=== PATIENT | female | born 1960 | race Caucasian/White ===

== ENCOUNTER 2021-07-13 13:25 | Outpatient (REF) | payer MEDICARE, MEDICAID, SELFPAY ==
--- NOTE | ~2021-07-13 | MM_ITS ---
EXAMINATION: MM SCREENING DIGITAL BREAST TOMOSYNTHESIS, BILATERAL CLINICAL INFORMATION: Screening. Asymptomatic. The lifetime risk of breast cancer based on the Tyrer-Cuzick Model is 9%. COMPARISON: Mammography: 07/08/2020, 07/03/2019, 11/21/2018, 07/23/2018, 06/13/2018, 08/23/2016 TECHNIQUE: Digital breast tomosynthesis is performed in both the craniocaudal and mediolateral oblique views along with computer-aided detection (CAD). Synthesized 2D images are generated from the tomosynthesis. FINDINGS: The breasts are heterogeneously dense, which may obscure small masses (ACR BI-RADS breast composition Category c). There is a fibronodular parenchymal pattern with scattered bilateral stable asymmetries similar to prior studies. There is no significant mass or interval developing density or architectural abnormality. The left breast has a biopsy clip marker retroareolar region. There are no abnormal calcifications. The axilla and skin contours are unremarkable. No significant changes. MM/MM tomosynthesis screening BI IMPRESSION: No significant changes from prior studies. ASSESSMENT: BI-RADS 2: Benign RECOMMENDATION: Routine annual mammography screening. This patient's information was entered into a reminder system with a target due date for their next mammogram.
== END 2021-07-13 13:26 | disposition home or self-care (01) ==
LOC: HO.MAMMO 13:25
PROVIDERS: PCP Student in an Organized Health Care Education/Training Program; Visit Provider Student in an Organized Health Care Education/Training Program
DX: Z12.31 Encounter for screening mammogram for malignant neoplasm of breast (principal)
CPT/HCPCS: 77063; 77067

== ENCOUNTER 2022-07-17 11:38 | Outpatient (REF) | payer MEDICARE, MEDICAID, SELFPAY ==
--- NOTE | ~2022-07-17 | MM_ITS ---
EXAMINATION: MM SCREENING DIGITAL BREAST TOMOSYNTHESIS, BILATERAL CLINICAL INFORMATION: Screening. Asymptomatic. The lifetime risk of breast cancer based on the Tyrer-Cuzick Model is 16%. COMPARISON: Mammography: 07/14/2021, 07/08/2020, 07/03/2019, 11/21/2018, 07/23/2018, 06/20/2018, 06/13/2018. TECHNIQUE: Digital breast tomosynthesis is performed in both the craniocaudal and mediolateral oblique views along with computer-aided detection (CAD). Synthesized 2D images are generated from the tomosynthesis. FINDINGS: The breasts are heterogeneously dense, which may obscure small masses (ACR BI-RADS breast composition Category c). Breast tissue composition borders on average fibroglandular. Parenchymal pattern is similar to prior exams. There is no developing density or interval architectural abnormality. Parenchymal asymmetry central anterior left breast on CC view is stable. There is biopsy clip marker again noted anterior left breast. Residual calcifications anterior lower inner left breast are similar to prior diagnostic study 2018. The axilla and skin contours are unremarkable. MM/MM tomosynthesis screening BI IMPRESSION: No significant changes from prior studies. ASSESSMENT: BI-RADS 2: Benign RECOMMENDATION: Routine annual mammography screening. This patient's information was entered into a reminder system with a target due date for their next mammogram.
== END 2022-07-17 11:39 | disposition home or self-care (01) ==
LOC: HO.MAMMO 11:38
PROVIDERS: PCP Student in an Organized Health Care Education/Training Program; Visit Provider Student in an Organized Health Care Education/Training Program
DX: Z12.31 Encounter for screening mammogram for malignant neoplasm of breast (principal)
CPT/HCPCS: 77063; 77067

== ENCOUNTER → 2023-08-21 11:30 | Outpatient (BNV) | payer MEDICARE, MEDICAID, SELFPAY | PROVIDERS: Visit Provider Radiology Diagnostic Radiology | DX: Z12.31 Encounter for screening mammogram for malignant neoplasm of breast (principal) | CPT/HCPCS: 77063; 77067 ==

== ENCOUNTER 2023-08-21 11:45 | Outpatient (REF) | payer MEDICARE, MEDICAID, SELFPAY ==
--- NOTE | ~2023-08-21 | MM_ITS ---
EXAMINATION: MM SCREENING DIGITAL BREAST TOMOSYNTHESIS, BILATERAL CLINICAL INFORMATION: Screening. Asymptomatic. COMPARISON: Mammography: This study is compared with prior exams dating back to 2019. TECHNIQUE: Digital breast tomosynthesis is performed in both the craniocaudal and mediolateral oblique views along with computer-aided detection (CAD). Synthesized 2D images are generated from the tomosynthesis. FINDINGS: The breasts are heterogeneously dense, which may obscure small masses (ACR BI-RADS breast composition Category c). There are grouped calcifications at the lower inner quadrant of the left breast at a middle depth. Further mammographic evaluation of these calcifications with magnification is advised. There is tissue marker in the lower outer quadrant of the left breast from prior benign percutaneous biopsy. In the right breast, there are no significant masses, abnormal calcifications, or other abnormalities. MM/MM tomosynthesis screening BI IMPRESSION: Left breast calcifications warrant additional mammographic imaging with magnification. No mammographic signs of malignancy right breast. ASSESSMENT: BI-RADS BI-RADS 0 - Incomplete: Needs additional Imaging. RECOMMENDATION: Additional views of the left breast Radiology department staff will contact the patient for additional imaging. Additional Imaging required This examination should not preclude the clinical evaluation of a suspicious palpable abnormality. This patient's information was entered into a reminder system with a target due date for their next mammogram.
== END 2023-08-21 11:46 | disposition home or self-care (01) ==
LOC: HO.MAMMO 11:45
PROVIDERS: Visit Provider Student in an Organized Health Care Education/Training Program
DX: Z12.31 Encounter for screening mammogram for malignant neoplasm of breast (principal)
CPT/HCPCS: 77063; 77067

== ENCOUNTER → 2023-11-13 11:30 | Outpatient (BNV) | payer MEDICARE, MEDICAID, SELFPAY | PROVIDERS: PCP Student in an Organized Health Care Education/Training Program; Visit Provider Radiology Diagnostic Radiology | DX: R92.1 Mammographic calcification found on diagnostic imaging of breast (principal) | CPT/HCPCS: 77065 ==

== ENCOUNTER 2023-11-13 11:57 | Outpatient (REF) | payer MEDICARE, MEDICAID, SELFPAY ==
--- NOTE | ~2023-11-13 | MM_ITS ---
EXAMINATION: MM DIAGNOSTIC DIGITAL MAMMOGRAPHY, LEFT CLINICAL INFORMATION: Evaluate grouped calcifications in the lower inner quadrant of the breast is middle depth seen on screening exam. Patient has history of benign stereotactic biopsy on the left 07/23/2018. COMPARISON: Mammography: 08/21/2023, 07/17/2022, 07/13/2021, 07/08/2020, and dating back to 08/23/2016. TECHNIQUE: Digital mammography is performed in the following views: 2-D spot magnification left CC and lateral medial views x2, as well as a 3-D full-field left mediolateral view. FINDINGS: There are scattered areas of fibroglandular density (ACR BI-RADS breast composition Category b). There is a post benign biopsy clip marker in the anterior left breast. In the lower inner quadrant of the left breast, there are loosely grouped albeit pleomorphic calcifications in a suspicious distribution (ductal distribution) with both linear, rounded, and branching forms, suspicious and indeterminate. Given the overall appearance on the magnification views and distribution, stereotactic biopsy is warranted. An asymmetric tissue density in the upper mid left breast on the MLO projection is unchanged from numerous prior exams and benign. No skin or axillary abnormalities noted. MM/MM tomosynthesis added views L IMPRESSION: -Suspicious calcifications in a ductal distribution with both branching, linear, and rounded forms, for which stereotactic biopsy is recommended. -The patient was 45 minutes late to her appointment, and declined to stay for the final impression of the interpretation. She will be called with the results and recommendations. ASSESSMENT: BI-RADS BI-RADS 4 - Suspicious finding RECOMMENDATION: Biopsy recommended
== END 2023-11-13 11:58 | disposition home or self-care (01) ==
LOC: HO.MAMMO 11:57
PROVIDERS: PCP Student in an Organized Health Care Education/Training Program; Visit Provider Student in an Organized Health Care Education/Training Program
DX: R92.1 Mammographic calcification found on diagnostic imaging of breast (principal)
CPT/HCPCS: 77061; 77065

== ENCOUNTER 2023-11-21 08:34 | Outpatient (AMB) | payer MEDICARE, MEDICAID, SELFPAY ==
--- NOTE | 2023-11-21 08:35 | MHC.OFFVIS ---
Intake Vital Signs 11/21/23 08:41 Height 5 ft 3 in Weight 181 lb BMI 32.1 BP 129/60 Blood Pressure Location Lt brachial Position Sitting Pulse 83 Intake Visit Reasons: LT ST BX - calcs Intake Note: This patient presents for a Stereotactic biopsy consultation for left breast calcifications. Patient c/o; reports occasional left breast pain. 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 Accompanied by: Sister Allergies mckenzie flavor [MCKENZIE FLAVOR] Allergy (Unknown, Unverified 11/21/23 08:47) HIVES anything mckenzie Allergy (Unknown, Uncoded 11/21/23 08:47) Unknown Medication List - Last Reconciled 11/21/23 by Jonathan Sesay MD acetaminophen mg PO albuterol sulfate 90 mcg/actuation (Ventolin HFA) 2 puffs inhalation QID PRN amitriptyline 100 mg PO BID celecoxib 50 mg PO BID esomeprazole magnesium 40 mg PO DAILY hydrochlorothiazide 25 mg PO DAILY hydroxyzine HCl 25 mg PO TID PRN lisinopril 10 mg PO DAILY loratadine 10 mg PO DAILY meclizine 25 mg PO DAILY PRN HPI LT ST BX - calcs HPI Details 63 year female here for left breast calcifications. She had undergone screening mammogram and was brought back in last week for genetic mammogram in view of calcifications seen on the left side. Was noted to have suspicious calcifications in a ductal distribution with branching, linear and rounded forms. A stereotactic biopsy had been recommended by the radiologist She otherwise denies any palpable breast masses or any nipple or skin changes Her menarche was at the age of 15 . She was never . She had menopause in her late 50s. She did have a biopsy on left breast in 2019 which was benign Her sister had metastatic breast cancer at age of 60. [facility] Medical History (Updated 11/21/23 @ 09:07 by Jonathan Sesay MD) Hypertension COPD (chronic obstructive pulmonary disease) Family history of breast cancer Breast calcification, left Female Reproductive History Menstrual Age of Menarche: 15 Total pregnancies: 0 Review of Systems Const Denies chills and Denies fever(s) Card Denies chest pain, Denies dyspnea and Denies dyspnea on exertion Resp Denies cough, Denies dyspnea and Denies dyspnea on exertion GI Denies hematochezia and Denies change in bowel habits Denies hematuria Musc Denies back pain and Denies limited range of motion Neuro Denies focal weakness and Denies convulsions Psych Denies depression and Denies mood swings Physical Exam Const General: comfortable and no acute distress Orientation/consciousness: patient oriented x3 Neck Neck: Yes no lymphadenopathy Chest Other: No palpable breast masses, no nipple or skin changes, no axillary lymphadenopathy Resp Auscultation: clear to auscultation bilaterally Cardio Rhythm: regular rhythm GI Palpation (GI): Soft to palpation, nontender and no guarding Neuro General: patient oriented x3 Assessment & Plan Assessment & Plan (1) Breast calcification, left: Code(s): R92.1 - Mammographic calcification found on diagnostic imaging of breast Plan: She had calcifications on the left breast as described above. A stereotactic biopsy had been recommended by the radiologist. I explained to her the technique of this procedure. I will see her again in the office to discuss the path report next week. (2) Family history of breast cancer: Code(s): Z80.3 - Family history of malignant neoplasm of breast Plan: Her sister was diagnosed to have metastatic breast cancer at age of 60. Her maternal grandmother was diagnosed to have breast cancer and a maternal uncle had colon cancer. She will qualify most likely for genetic testing. I explained to her the implications of this test. She is interested so I will schedule her for genetic counseling and genetic testing on her follow-up. Orders: Orders MM stereotactic biopsy LT 11/20/23 R92.1 - Mammographic calcification found on diagnostic imaging of breast Coding Level of Care Code New Pt Level 3 (70616) Diagnoses Breast calcification, left R92.1 Family history of breast cancer Z80.3
[2023-11-21 08:41] VITALS: BP 129/60; PULSE 83; BMI 32.1
== END 2023-11-21 09:09 | disposition home or self-care (01) ==
PROVIDERS: PCP Student in an Organized Health Care Education/Training Program; Visit Provider Surgery
DX: R92.1 Mammographic calcification found on diagnostic imaging of breast (principal); Z80.3 Family history of malignant neoplasm of breast
CPT/HCPCS: 99203

== ENCOUNTER 2023-11-21 09:18 | Outpatient (REF) | payer MEDICARE, MEDICAID, SELFPAY ==
--- NOTE | ~2023-11-21 | MM_ITS ---
EXAMINATION: STEREOTACTIC TOMOSYNTHESIS-GUIDED VACUUM-ASSISTED BREAST BIOPSY, LEFT SPECIMEN RADIOGRAPH, LEFT POST PROCEDURE DIGITAL MAMMOGRAM, LEFT CLINICAL INFORMATION: Pleomorphic calcifications in a ductal/segmental distribution, left breast inferior medial quadrant, suspicious and recommended for stereotactic biopsy. Branching and linear forms are present. COMPARISON: 11/13/2023, 08/21/2023, and numerous priors. Patient has prior benign stereotactic biopsy in the anterior left breast just inferior and just lateral to the nipple line. TECHNIQUE/PROCEDURE: Informed consent was obtained from the patient after discussion of the benefits, risks, and alternatives to biopsy today. Patient appeared to understand. Gave opportunity for questions. Patient signed consent form. BIOPSY TABLE: [employer]Quilibrium Affirm Prone Biopsy System. LESION: Pleomorphic calcifications lower inner left breast. LOCAL ANESTHESIA: 5 mL 1% lidocaine; 8 mL 1% lidocaine with epinephrine. DERMATOTOMY: Single skin preethi dermatotomy performed. NEEDLE: [employer] Eviva 9-gauge vacuum assisted core biopsy device. APPROACH: caudal cranial. TARGETING: Combination of digital breast tomosynthesis and stereotactic digital mammography used for targeting. CORES: 8. CLIP: [employer] Buckle-shaped marker. SPECIMEN RADIOGRAPH: Specimen radiograph is taken in separate room using digital mammography. Several of the index calcifications are in the excised cores, including a linear form. POST PROCEDURE UNILATERAL DIGITAL MAMMOGRAM: The post biopsy mammogram is performed in separate room using separate digital mammography equipment from the biopsy procedure. CC and mediolateral views are obtained. There are scattered areas of fibroglandular density (breast composition category: b). The clip marker is in accurate and good position. The calcifications are markedly decreased at the biopsy site. No significant hematoma. The patient tolerated the procedure well. No immediate complications. Home instructions reviewed with the patient. Final pathology results are pending. MM/MM stereotactic biopsy LT IMPRESSION: 1. Digital tomosynthesis-guided core biopsy left breast pleomorphic calcifications in a ductal distribution lower inner quadrant, with subsequent clip placement. 2. Specimen radiograph taken and post procedure mammogram. There are several calcifications within the specimen radiograph. There is accurate and satisfactory positioning of the biopsy clip. 3. Final pathology results pending. An addendum report will be issued.
== END 2023-11-21 09:19 | disposition home or self-care (01) ==
LOC: HO.MAMMO 09:18
PROVIDERS: PCP Student in an Organized Health Care Education/Training Program; Visit Provider Surgery
DX: R92.1 Mammographic calcification found on diagnostic imaging of breast (principal)
CPT/HCPCS: 19081; 88305; 88341; 88342; 99202; A4648

== ENCOUNTER → 2023-11-21 10:00 | Outpatient (BNV) | payer MEDICARE, MEDICAID, SELFPAY | PROVIDERS: PCP Student in an Organized Health Care Education/Training Program; Visit Provider Radiology Diagnostic Radiology | DX: R92.1 Mammographic calcification found on diagnostic imaging of breast (principal) | CPT/HCPCS: 19081 ==

== ENCOUNTER 2023-11-28 14:07 | Outpatient (AMB) | payer MEDICARE, MEDICAID, SELFPAY ==
--- NOTE | 2023-11-28 14:12 | MHC.OFFVIS ---
Intake Vital Signs 11/28/23 14:22 Height 5 ft 3 in Weight 180 lb 15.992 oz BMI 32.1 BP 134/75 Blood Pressure Location Lt brachial Position Sitting Pulse 79 Intake Visit Reasons: LT breast calcifications, biopsy results Intake Note: This patient presents for a follow-up assessment for breast biopsy results. Patient c/o; reports no changes or complaints at this time. Comedian Required: No Accompanied by: Other Relationship Allergies mckenzie flavor [MCKENZIE FLAVOR] Allergy (Unknown, Unverified 11/28/23 14:22) HIVES anything mckenzie Allergy (Unknown, Uncoded 11/28/23 14:22) Unknown Medication List - Last Reconciled 11/28/23 by Jonathan Sesay MD acetaminophen mg PO albuterol sulfate 90 mcg/actuation (Ventolin HFA) 2 puffs inhalation QID PRN amitriptyline 100 mg PO BID celecoxib 50 mg PO BID esomeprazole magnesium 40 mg PO DAILY hydrochlorothiazide 25 mg PO DAILY hydroxyzine HCl 25 mg PO TID PRN lisinopril 10 mg PO DAILY loratadine 10 mg PO DAILY meclizine 25 mg PO DAILY PRN HPI LT breast calcifications, biopsy results HPI Details She had undergone stereotactic biopsy for left breast calcifications last hemorrhoid 2022. She tolerated procedure well although she admits some bruising in the area. She otherwise denies significant complaints. [facility] Medical History (Updated 11/28/23 @ 14:39 by Jonathan Sesay MD) Atypical ductal hyperplasia of breast Hypertension COPD (chronic obstructive pulmonary disease) Family history of breast cancer Breast calcification, left Female Reproductive History Menstrual Age of Menarche: 15 Review of Systems Const Denies chills and Denies fever(s) Card Denies chest pain, Denies dyspnea and Denies dyspnea on exertion Resp Denies cough, Denies dyspnea and Denies dyspnea on exertion GI Denies hematochezia and Denies change in bowel habits Denies hematuria Musc Denies back pain and Denies limited range of motion Neuro Denies focal weakness and Denies convulsions Psych Denies depression and Denies mood swings Physical Exam Vital Signs: Last Vital Signs Pulse 79 11/28/23 14:22 BP 134/75 11/28/23 14:22 BMI result Body Mass Index 32.1 Const General: comfortable and no acute distress Chest Other: Left breast biopsy site on the inferior breast with some ecchymosis, no hematoma Resp Effort & Inspection: normal respiratory effort Cardio Rate: regular rate Assessment & Plan Assessment & Plan (1) Atypical ductal hyperplasia of breast: Code(s): N60.99 - Unspecified benign mammary dysplasia of unspecified breast Plan: Status post stereotactic biopsy. Her path report shows an atypical ductal hyperplasia. However, the radiologist had recommended proceeding with an MRI in view of the segmental distribution of the calcifications. There may be associated DCIS in the surrounding areas so we will schedule her for breast MRI. I will see her in the office after the MRI and we can decide on the next step in her workup including lumpectomy. Orders: Orders MR breast LT wo con Today R92.1 - Mammographic calcification found on diagnostic imaging of breast Coding Level of Care Code Est Pt Level 3 (09338) Diagnoses Atypical ductal hyperplasia of breast N60.99
[2023-11-28 14:22] VITALS: BP 134/75; PULSE 79; BMI 32.1
== END 2023-11-28 14:41 | disposition home or self-care (01) ==
PROVIDERS: PCP Student in an Organized Health Care Education/Training Program; Visit Provider Surgery
DX: N60.99 Unspecified benign mammary dysplasia of unspecified breast (principal)
CPT/HCPCS: 99213

== ENCOUNTER → 2023-11-28 14:07 | Outpatient (BNVA) | payer MEDICARE, MEDICAID, SELFPAY | PROVIDERS: PCP Student in an Organized Health Care Education/Training Program; Visit Provider Surgery | DX: N60.99 Unspecified benign mammary dysplasia of unspecified breast (principal) | CPT/HCPCS: 99212 ==

== ENCOUNTER 2024-01-04 13:44 | Outpatient (REF) | payer MEDICARE, MEDICAID, SELFPAY | END 2024-01-04 13:45 | disposition home or self-care (01) | LOC: HO.MRI 13:44 | PROVIDERS: PCP Student in an Organized Health Care Education/Training Program; Visit Provider Surgery | DX: Z13.89 Encounter for screening for other disorder (principal) ==

== ENCOUNTER 2024-02-14 11:51 | Outpatient (AMB) | payer MEDICARE, MEDICAID, SELFPAY ==
--- NOTE | 2024-02-14 11:56 | MHC.OFFVIS ---
Intake Visit Reasons: MRI results *[facility] Intake Note: MRI results *[facility]. Patient c/o; reports no complaints. 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: Details: [age] year female here for follow-up for atypical ductal hyperplasia. She had undergone stereotactic biopsy for left breast calcifications last November 21, 2022. She tolerated the procedure well. Her path report showed atypical ductal hyperplasia. However, since there was segmental distribution of the calcifications, an MRI of the breast was also recommended by the radiologist. She is here to discuss this MRI. This was done in [facility]. She otherwise denies any significant new complaints. [facility] Medical History Atypical ductal hyperplasia of breast Hypertension COPD (chronic obstructive pulmonary disease) Family history of breast cancer Breast calcification, left Female Reproductive History Menstrual Age of Menarche: 15 Review of Systems Const Denies chills and Denies fever(s) Card Denies chest pain, Denies dyspnea and Denies dyspnea on exertion Resp Denies cough, Denies dyspnea and Denies dyspnea on exertion GI Denies hematochezia and Denies change in bowel habits Denies hematuria Musc Denies back pain and Denies limited range of motion Neuro Denies focal weakness and Denies convulsions Psych Denies depression and Denies mood swings Physical Exam Const General: comfortable and no acute distress Orientation/consciousness: patient oriented x3 Neck Neck: Yes no lymphadenopathy Chest Other: no palpable breast masses, no nipple or skin changes Resp Auscultation: clear to auscultation bilaterally Cardio Rhythm: regular rhythm GI Palpation (GI): Soft to palpation, nontender and no guarding Neuro General: patient oriented x3 Assessment & Plan Assessment & Plan (1) Atypical ductal hyperplasia of breast: Code(s): N60.99 - Unspecified benign mammary dysplasia of unspecified breast Category: Medical Plan: Her MRI done at [facility] actually does not reveal any suspicious mass. There are post surigical changes around the biopsy marker seen on the left breast. However, in view of the atypical ductal hyperplasia seen on her biopsy of the left breast, she will undergo lumpectomy with Hologic localizer. I reviewed with her the technique of this procedure. I discussed the risks including but not limited to bleeding, infections, hematoma, as well as the benefits and alternatives. The case was discussed with the radiologist. Coding Level of Care Code Est Pt Level 3 (24067) Diagnoses Atypical ductal hyperplasia of breast N60.99
== END 2024-02-14 12:16 | disposition home or self-care (01) ==
PROVIDERS: PCP Student in an Organized Health Care Education/Training Program; Visit Provider Surgery
DX: N60.99 Unspecified benign mammary dysplasia of unspecified breast (principal)
CPT/HCPCS: 99213

== ENCOUNTER → 2024-02-14 11:51 | Outpatient (BNVA) | payer MEDICARE, MEDICAID, SELFPAY | PROVIDERS: PCP Student in an Organized Health Care Education/Training Program; Visit Provider Surgery | DX: N60.99 Unspecified benign mammary dysplasia of unspecified breast (principal) | CPT/HCPCS: 99212 ==

== ENCOUNTER 2024-03-10 09:49 | Outpatient (REF) | payer MEDICARE, MEDICAID, SELFPAY ==
--- NOTE | ~2024-03-10 | MM_ITS ---
EXAMINATION: MM MAMMOGRAM GUIDED RFID LOCALIZATION BREAST, LEFT CLINICAL INFORMATION: Stereotactic biopsy yielding ADH left breast posterior medial aspect, marked by a buckle clip.? 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 RFID localization of buckle-shaped biopsy clip. MRI performed at [facility] 01/30/2024 shows no additional suspicious enhancement, either mass or non mass-like enhancement above background. COMPARISON: Stereotactic biopsy left breast 11/21/2023. MRI breasts performed at [facility] 01/30/2024. Diagnostic mammography 11/13/2023. TECHNIQUE NEEDLE LOC: Proper informed consent is obtained from the patient after discussion of the procedure, potential risks and complications, and alternatives including declining the procedure today. Patient was given an opportunity for questions. The patient appeared to understand. The patient consented to the procedure and signed the consent form. GUIDANCE: Digital mammography. APPROACH: Medial Lateral. TARGET: Buckle-shaped biopsy clip. ANESTHESIA: carbonated lidocaine 1%: 2.0 mL. LOCALIZATION SYSTEM: [employer] LOCallizer Wire-Free Guidance System with 12g needle applicator. 7 cm length. RADIOFREQUENCY TAG: ID # [id number] DERMATOTOMY: 1 mm skin-preethi dermatotomy performed. RF Tag ID confirmed with LOCalizer Guidance System prior to placement. The skin is prepped and local anesthesia administered. The needle is positioned and RFID tag deployed. Final images demonstrate the LOCalizer RF tag to reside directly abutting and touching the buckle biopsy clip. The patient tolerated the procedure well and had no immediate complications. Dressing placed and home instructions reviewed. MM/MM RF Tag device LT IMPRESSION: -Status post left breast RFID localization, left breast inferomedial aspect. -Last 2 images show RFID placed in excellent location; images are marked and labeled for reference in the OR.
[2024-03-10] MEDS: Lidocaine HCl 1 % 20 ML VIAL SUBCUT (10:52)
[2024-03-10] MEDS: Sodium Bicarbonate 8.4% 50 MEQ/50 ML VIAL SUBCUT (10:53)
== END 2024-03-10 09:50 | disposition home or self-care (01) ==
LOC: HO.MAMMO 09:49
PROVIDERS: PCP Student in an Organized Health Care Education/Training Program; Visit Provider Surgery
DX: N60.92 Unspecified benign mammary dysplasia of left breast (principal)
CPT/HCPCS: 19281; C1819

== ENCOUNTER → 2024-03-10 10:00 | Outpatient (BNV) | payer MEDICARE, MEDICAID, SELFPAY | PROVIDERS: PCP Student in an Organized Health Care Education/Training Program; Visit Provider Radiology Diagnostic Radiology | DX: N60.92 Unspecified benign mammary dysplasia of left breast (principal) | CPT/HCPCS: 19281 ==

== ENCOUNTER 2024-03-18 09:34 | Day surgery (SDC) | payer MEDICARE, MEDICAID, SELFPAY ==
[2024-03-14 14:15] VITALS: BMI 32.1
--- NOTE | ~2024-03-18 | MM_ITS ---
EXAMINATION: MM SPECIMEN X-RAY BREAST, LEFT BREAST CLINICAL INDICATION: Status post excisional biopsy for calcifications representing atypical ductal hyperplasia bordering on low-grade DCIS, lower inner left breast. COMPARISON: Localization 03/10/2024. Stereotactic biopsy 11/21/2023. TECHNIQUE: Single radiograph of the excised breast tissue is performed using digital mammography. FINDINGS: Specimen radiograph demonstrates the presence of the buckle-shaped biopsy clip, RFID tag, and several calcifications contained within the central aspect of the specimen. Results were called to Dr. Jonathan Sesay in the operating room at the time of imaging.
--- NOTE | 2024-03-18 09:00 | P.HPSUR_ITS ---
Pre-Procedural Eval Section A - 24 Hr Update-Section A only Date of Service: 03/18/24 Section B - Complete if H&P > 30 days Chief Complaint: Unspecified benign mammary dysplasia of unspecifie Details of Present Illness: has atypical ductal hyperplasia in left breast calcification Relevant Family History (Specify if Yes): Yes Relevant Social History: None Present Medications: see Short Stay Collaborative assessment Medical History: Significant History (COPD) Allergies: Allergies Allergy/AdvReac Type Severity Reaction Status Date / Time mckenzie flavor [MCKENZIE FLAVOR] Allergy Unknown HIVES Unverified 02/14/24 12:00 Review of Systems Sugical H&P ROS: Negative: Constitution, Cardiovascular, Respiratory, Neurological, Psychiatric, Hem-Onc, Allergic/Immunologic, Gastrointestinal, Genitourinary, Musculoskeletal, Integumentary, Endocrine and Eyes/Ears/Nose/Th roat Exam Surgical H&P Exam: Normal: HEENT, Normal: Heart, Normal: Lungs, Normal: Extremities, Normal: Abdomen, Normal: Skin and Normal: Neurological Plan Diagnosis/Plan: Unchanged I have reviewed the history and physical and performed a pertinent physical examination on my patient. No changes have occurred unless specified. Time Spent With Patient Time: Total time managing care of this patient today ____ minutes.
[2024-03-18 10:04] VITALS: BMI 33.3
[2024-03-18 10:07] VITALS: BP 146/74; PULSE 82; RESP 17; TEMP 36.3; O2SAT 95
[2024-03-18] MEDS: Lactated Ringers 1,000 ML 100 ML IVCONT (10:08)
--- NOTE | 2024-03-18 10:10 | HO.ANESPROP2 ---
Documented by User: Funmi Cates NP 03/17/24 10:44 HPI - Anesthesia Eval Consult details Narrative: 63yo F for Left Breast Lumpectomy w/LOCalizer PMFSH Active Problems Active Problems: All Active Problems Atypical ductal hyperplasia of breast (Acute) Hypertension (Acute) COPD (chronic obstructive pulmonary disease) (Acute) Family history of breast cancer (Acute) Breast calcification, left (Acute) Past Medical History Medical History GERD (gastroesophageal reflux disease) Atypical ductal hyperplasia of breast Hypertension COPD (chronic obstructive pulmonary disease) Family history of breast cancer Breast calcification, left Surgical History Surgical History (Updated 03/18/24 @ 09:45 by Pia Marshall RN) Hx of elbow surgery Hx of hand surgery H/O colonoscopy Social History Social History Patient Tobacco Use Status: Former Tobacco user Quit Date: 2017 Tobacco use type: Cigarette Use of substances other than those prescribed or required for medical reasons: Yes Substance Use Frequency: Daily Are you DNR?: No Advance Directives: No Advance Directives Information Provided: Yes Meds Allergies Allergy/AdvReac Type Severity Reaction Status Date / Time santos flavor [SANTOS FLAVOR] Allergy Unknown HIVES Verified 03/18/24 09:45 Home Medications ?Medication ?Instructions ?Recorded ?Confirmed ?Last Taken ?Type acetaminophen 500 mg tablet 500 mg PO Q4H PRN Pain 11/21/23 03/14/24 Unknown History albuterol sulfate 90 mcg/actuation 2 puff inhalation QID PRN wheezing 11/21/23 03/14/24 03/18/24 07:45 History aerosol inhaler (Ventolin HFA) esomeprazole magnesium 40 mg 40 mg PO DAILY 11/21/23 03/14/24 Unknown History capsule,delayed release hydrochlorothiazide 25 mg tablet 25 mg PO DAILY 11/21/23 03/14/24 Unknown History hydroxyzine HCl 25 mg tablet 25 mg PO TID PRN itch 11/21/23 03/14/24 Unknown History lisinopril 10 mg tablet 10 mg PO DAILY 11/21/23 03/14/24 Unknown History loratadine 10 mg tablet 10 mg PO DAILY 11/21/23 03/14/24 Unknown History meclizine 25 mg tablet 25 mg PO DAILY PRN Dizziness Or 11/21/23 03/14/24 Unknown History Vertigo Exam Height,Weight and Vital Signs: Height 5 ft 3 in Weight 82.1 kg Assessment and Plan Assessment Anesthesia Assessment: Chart Reviewed Documented by User: Pia Allen DO 03/18/24 10:41 HPI - Anesthesia Eval Consult details Narrative: 63yo F for Left Breast Lumpectomy w/LOCalizer Marijuana and ETOH daily PMFSH Past Medical History Medical History GERD (gastroesophageal reflux disease) Atypical ductal hyperplasia of breast Hypertension COPD (chronic obstructive pulmonary disease) Family history of breast cancer Breast calcification, left Family History Family history of problems with anesthesia: No Surgical History Surgical History (Updated 03/18/24 @ 09:45 by Pia Marshall RN) Hx of elbow surgery Hx of hand surgery H/O colonoscopy History of Problems with Anesthesia: No Social History Social History Patient Tobacco Use Status: Former Tobacco user Quit Date: 2017 Tobacco use type: Cigarette Use of substances other than those prescribed or required for medical reasons: Yes Substance Use Frequency: Daily Are you DNR?: No Advance Directives: No Advance Directives Information Provided: Yes Meds Allergies Allergy/AdvReac Type Severity Reaction Status Date / Time santos flavor [SANTOS FLAVOR] Allergy Unknown HIVES Verified 03/18/24 09:45 Home Medications ?Medication ?Instructions ?Recorded ?Confirmed ?Last Taken ?Type acetaminophen 500 mg tablet 500 mg PO Q4H PRN Pain 11/21/23 03/14/24 Unknown History albuterol sulfate 90 mcg/actuation 2 puff inhalation QID PRN wheezing 11/21/23 03/14/24 03/18/24 07:45 History aerosol inhaler (Ventolin HFA) esomeprazole magnesium 40 mg 40 mg PO DAILY 11/21/23 03/14/24 Unknown History capsule,delayed release hydrochlorothiazide 25 mg tablet 25 mg PO DAILY 11/21/23 03/14/24 Unknown History hydroxyzine HCl 25 mg tablet 25 mg PO TID PRN itch 11/21/23 03/14/24 Unknown History lisinopril 10 mg tablet 10 mg PO DAILY 11/21/23 03/14/24 Unknown History loratadine 10 mg tablet 10 mg PO DAILY 11/21/23 03/14/24 Unknown History meclizine 25 mg tablet 25 mg PO DAILY PRN Dizziness Or 11/21/23 03/14/24 Unknown History Vertigo Exam Exam Date and Time: March 18, 2024 101 Height,Weight and Vital Signs: Height 5 ft 3 in Weight 82.1 kg Height 5 ft 3 in Weight 85.275 kg Vital Signs Temperature 97.3 F 03/18/24 10:07 Pulse Rate 82 03/18/24 10:07 Respiratory Rate 17 03/18/24 10:07 Blood Pressure 146/74 H 03/18/24 10:07 Pulse Oximetry 95 03/18/24 10:07 Oxygen Delivery Method Room Air 03/18/24 10:07 Temperature 97.3 F 03/18/24 10:07 Pulse Rate 82 03/18/24 10:07 Respiratory Rate 17 03/18/24 10:07 Blood Pressure 146/74 H 03/18/24 10:07 Pulse Oximetry 95 03/18/24 10:07 Oxygen Delivery Method Room Air 03/18/24 10:07 Airway Mallampati Class: II TM Dist: >3cm Neck ROM: Limited Denture: Upper Loose/Missing/Broken Teeth: Yes (poor dentition bottom jaw) Heart: S1S2 Lungs: CTAB Assessment and Plan Assessment Anesthesia Assessment: Anesthesia Plan Discussed and Chart Reviewed Final Anesthetic Review Family History of Problems with Anesthesia: No History of Problems with Anesthesia: No NPO: Yes ASA Class: III Final Preanesthetic Review: No Changes in Pt Med Stat, Meds/Allgs Chart Reviewed, Consent Obtained/Reviewed and Anes Risks/Benef Reviewed Patient Risk: Low Procedure Risk: Low Anesthetic Plan Anesthetic Plan: Agree w/ Assess. and Plan Disposition: Standard PACU
--- NOTE | 2024-03-18 10:49 | W.PM.OPN ---
Operative Note Operative Note Date of Service: 03/18/24 Narrative: Preop diagnosis: Atypical ductal hyperplasia, left breast Postop diagnosis: The same Procedure: Lumpectomy left breast with Hologic localizer Surgeon: Jonathan Sesay MD itinerant teacher assistant: PAWEL Chowdhury The patient is a 63 year old female with calcifications on the left breast. MRI biopsy of this showed atypical ductal hyperplasia. In view of the association of this pathology with high-grade lesions, I had recommended doing lumpectomy. I explained the technique of lumpectomy with Hologic localizer. I reviewed the risks, benefits, and alternatives and she had given consent The RFID clip had been placed last week by the radiologist The patient was brought to the operating room and placed supine under general anesthesia via laryngeal mask airway. The left breast was prepped and draped in the usual sterile fashion. A surgical time-out was done. The patient received cefazolin 2 g IV preoperatively. I used the Hologic probe to the determine the closest area on the skin for our incision. I marked this area in the medial aspect of the left breast and made the incision transversely with a blade 15. This carried down with electrocautery through the full-thickness of the skin and subcutaneous fat. I then used the curved Hernandez scissors to divide the breast tissue surrounding the area of the RFID clip. The Hologic probe was therefore used periodically to guide our incision. We divided says tissue circumferentially around the area of the RFID clip based on the Hologic probe. This was sent as a specimen. I had marked the superior and lateral margins of the specimen with sutures. We did immediate re-ray of the lumpectomy specimen in the room and this showed both the buckle biopsy clip and the RFID clip to be in the specimen. We examined the lumpectomy site. We observed for hemostasis. Once hemostasis was confirmed, I reapposed breast tissue with Polysorb 3-0 interrupted sutures. Skin closure was achieved with Polysorb 4-0 subcuticular running stitch The area was infiltrated with Marcaine 0.5% for postop analgesia. Dressings were applied. The procedure was completed. The patient tolerated the procedure well. There were no immediate complications. Initial and final counts of sponges and instruments were correct. estimated blood loss about 20 cc The patient was extubated without difficulty and transferred to the recovery room with stable vital signs.
[2024-03-18 11:05] VITALS: BP 140/86; PULSE 72; RESP 12; TEMP 36.7; O2SAT 99
[2024-03-18 11:10] VITALS: BP 124/84; PULSE 71; RESP 11; O2SAT 99
[2024-03-18 11:15] VITALS: BP 133/84; PULSE 74; RESP 11; O2SAT 99
[2024-03-18 11:20] VITALS: BP 137/82; PULSE 75; RESP 13; O2SAT 99
[2024-03-18] MEDS: oxyCODONE HCl Immed Release 5 MG TABLET 10 MG PO (11:25)
[2024-03-18 11:35] VITALS: BP 119/72; PULSE 74; RESP 14; TEMP 36.8; O2SAT 99
== END 2024-03-18 13:29 | disposition home or self-care (01) ==
LOC: HO.SSS 09:35
PROVIDERS: PCP Student in an Organized Health Care Education/Training Program; Visit Provider Surgery
PROC: (CPT 19301; principal; 2024-03-18 10:00)
DX: D05.12 Intraductal carcinoma in situ of left breast (principal); Z80.3 Family history of malignant neoplasm of breast; I10 Essential (primary) hypertension; J44.9 Chronic obstructive pulmonary disease, unspecified; Z79.899 Other long term (current) drug therapy; Z98.890 Other specified postprocedural states; Z87.891 Personal history of nicotine dependence
CPT/HCPCS: 19301; 88307; 88329; 88360; J0690; J1100; J1885; J2250; J2405; J2704; J2795; J3010

== ENCOUNTER → 2024-03-18 09:34 | Outpatient (BNV) | payer MEDICARE, MEDICAID, SELFPAY | PROVIDERS: PCP Student in an Organized Health Care Education/Training Program; Visit Provider Surgery | DX: N60.92 Unspecified benign mammary dysplasia of left breast (principal) | CPT/HCPCS: 19301 ==

== ENCOUNTER 2024-04-02 10:31 | Outpatient (AMB) | payer MEDICARE, MEDICAID, SELFPAY ==
--- NOTE | 2024-04-02 10:32 | MHC.OFFVIS ---
Vital Signs 04/02/24 10:41 BP 123/71 Blood Pressure Location Lt brachial Position Sitting Pulse 80 Intake Visit Reasons: S/P Lt breast lumpectomy w/localizer Intake Note: This patient presents for a post-op assessment status post left breast lumpectomy w/localizer. Pt c/o; reports sharp pain, reports last night noticed a few new bruising areas on the breast. Surgery date: 03/18/2024 Lt breast lumpectomy with Hologic localizer Locker Room Attendant Required: No Accompanied by: Other Relationship Allergies mckenzie flavor [MCKENZIE FLAVOR] Allergy (Unknown, Verified 04/10/24 08:25) HIVES HPI HPI S/P Lt breast lumpectomy w/localizer: Details: [age] year female here for follow-up after lumpectomy for atypical ductal hyperplasia. She had undergone stereotactic biopsy for left breast calcifications last November 21, 2022. She tolerated the procedure well. Her path report showed atypical ductal hyperplasia. However, since there was segmental distribution of the calcifications, an MRI of the breast was also recommended by the radiologist but this did not reveal any other suspicious mass. She therefore underwent lumpectomy for the atypical ductal hyperplasia with a Hologic localizer last March 18, 2024. She is here for postop visit. She says she is doing well at this time. She denies any significant complaints. [facility] Medical History DCIS (ductal carcinoma in situ) GERD (gastroesophageal reflux disease) Atypical ductal hyperplasia of breast Hypertension COPD (chronic obstructive pulmonary disease) Family history of breast cancer Breast calcification, left Surgical History History of lumpectomy of left breast (~03/18/24) Hx of elbow surgery Hx of hand surgery H/O colonoscopy Family History Sister Breast CA Social History (Updated 04/10/24 @ 08:25 by Jovi Pinon) Household Members: Family Patient Tobacco Use Status: Former Tobacco user Tobacco use type: Cigarette Substance Use Type: Marijuana service: No Current occupational status: disabled Female Reproductive History Menstrual Age of Menarche: 15 Review of Systems Const Denies chills and Denies fever(s) Card Denies chest pain, Denies dyspnea and Denies dyspnea on exertion Resp Denies cough, Denies dyspnea and Denies dyspnea on exertion GI Denies hematochezia and Denies change in bowel habits Denies hematuria Musc Denies back pain and Denies limited range of motion Neuro Denies focal weakness and Denies convulsions Psych Denies depression and Denies mood swings Physical Exam Vital Signs: Last Vital Signs Pulse 80 04/02/24 10:41 BP 123/71 04/02/24 10:41 Const General: comfortable and no acute distress Orientation/consciousness: patient oriented x3 Neck Neck: Yes no lymphadenopathy Chest Other: Lumpectomy incision is well healed on the medial aspect, left breast, with mild residual induration Resp Auscultation: clear to auscultation bilaterally Cardio Rhythm: regular rhythm GI Palpation (GI): Soft to palpation, nontender and no guarding Neuro General: patient oriented x3 Assessment & Plan Assessment & Plan (1) DCIS (ductal carcinoma in situ): Code(s): D05.10 - Intraductal carcinoma in situ of unspecified breast Category: Medical Plan: Unfortunately, her lumpectomy specimen of the left breast shows DCIS within microns of the margins on the anterior, inferior and lateral sides. In view of this very close margins, I explained to her that it would be best to proceed with wider excision. The recommended margins for DCIS is more than 2 mm. I explained the technique of this procedure. I reviewed the risks including but not limited to bleeding, infections, hematoma, poor healing as well as the benefits and alternatives. She will need radiation as well to complete treatment. She understands that the other option is to do a total mastectomy of the left breast. She does not want this option at this time. I will have her seen by the oncologist as well. She understands what to expect postoperatively. Orders: Referrals Hematology & Oncology Referral D05.10 - Intraductal carcinoma in situ of unspecified breast Coding Level of Care Code Est Pt Level 4 (04921) Diagnoses DCIS (ductal carcinoma in situ) D05.10
[2024-04-02 10:41] VITALS: BP 123/71; PULSE 80
== END 2024-04-02 10:53 | disposition home or self-care (01) ==
PROVIDERS: PCP Student in an Organized Health Care Education/Training Program; Visit Provider Surgery
DX: D05.10 Intraductal carcinoma in situ of unspecified breast (principal)
CPT/HCPCS: 99024

== ENCOUNTER → 2024-04-02 10:31 | Outpatient (BNVA) | payer MEDICARE, MEDICAID, SELFPAY | PROVIDERS: PCP Student in an Organized Health Care Education/Training Program; Visit Provider Surgery | DX: D05.10 Intraductal carcinoma in situ of unspecified breast (principal) | CPT/HCPCS: 99212 ==

== ENCOUNTER → 2024-04-10 08:16 | Outpatient (BNV) | payer MEDICARE, MEDICAID, SELFPAY | PROVIDERS: PCP Student in an Organized Health Care Education/Training Program; Referring Provider Surgery; Visit Provider Internal Medicine Medical Oncology | DX: D05.12 Intraductal carcinoma in situ of left breast (principal) | CPT/HCPCS: 99204; 99213 ==

== ENCOUNTER 2024-04-18 07:29 | Day surgery (SDC) | payer MEDICARE, MEDICAID, SELFPAY ==
[2024-04-15 10:23] VITALS: BMI 33.3
--- NOTE | 2024-04-16 10:16 | HO.ANESPROP2 ---
Documented by User: Funmi Cates NP 04/16/24 10:19 HPI - Anesthesia Eval Consult details Narrative: 63yo F for Left Wider Excision of Breast Mass s/p lumpectomy 03/2024 with GA-LMA 4 Marijuana and ETOH daily PMFSH Active Problems Active Problems: All Active Problems DCIS (ductal carcinoma in situ) (Acute) Atypical ductal hyperplasia of breast (Acute) Hypertension (Acute) COPD (chronic obstructive pulmonary disease) (Acute) Family history of breast cancer (Acute) Breast calcification, left (Acute) Past Medical History Medical History (Updated 04/10/24 @ 09:08 by Denise Villavicencio MD) DCIS (ductal carcinoma in situ) GERD (gastroesophageal reflux disease) Atypical ductal hyperplasia of breast Hypertension COPD (chronic obstructive pulmonary disease) Family history of breast cancer Breast calcification, left Family History Family History Sister Breast CA Family history of problems with anesthesia: No Surgical History Surgical History (Updated 04/18/24 @ 07:51 by Ghazal Cerna) History of lumpectomy of left breast (~03/18/24) Hx of elbow surgery Hx of hand surgery H/O colonoscopy History of Problems with Anesthesia: No Social History Social History (Updated 04/10/24 @ 08:25 by Jovi Pinon) Household Members: Family Patient Tobacco Use Status: Former Tobacco user Tobacco use type: Cigarette Years Smoked: 27 Smoked in Last 30 Days: No Use of substances other than those prescribed or required for medical reasons: Yes Substance Use Type: Marijuana Substance Use Frequency: Daily Are you DNR?: No Advance Directives: No Advance Directives Information Provided: Yes service: No Current occupational status: disabled Meds Allergies Allergy/AdvReac Type Severity Reaction Status Date / Time santos flavor [SANTOS FLAVOR] Allergy Intermediate HIVES Verified 04/18/24 07:47 Home Medications ?Medication ?Instructions ?Recorded ?Confirmed ?Last Taken ?Type acetaminophen 500 mg tablet 500 mg PO Q4H PRN Pain 11/21/23 04/18/24 Unknown History albuterol sulfate 90 mcg/actuation 2 puff inhalation QID PRN wheezing 11/21/23 04/18/24 03/18/24 07:45 History aerosol inhaler (Ventolin HFA) esomeprazole magnesium 40 mg 40 mg PO DAILY 11/21/23 04/18/24 Unknown History capsule,delayed release hydrochlorothiazide 25 mg tablet 25 mg PO DAILY 11/21/23 04/18/24 04/17/24 History hydroxyzine HCl 25 mg tablet 25 mg PO TID PRN itch 11/21/23 04/18/24 Unknown History lisinopril 10 mg tablet 10 mg PO DAILY 11/21/23 04/18/24 04/17/24 History loratadine 10 mg tablet 10 mg PO DAILY 11/21/23 04/18/24 Unknown History meclizine 25 mg tablet 25 mg PO DAILY PRN Dizziness Or 11/21/23 04/18/24 Unknown History Vertigo Exam Height,Weight and Vital Signs: Height 5 ft 3 in Weight 85.275 kg Pertinent Lab Results Pertinent Lab Results: Laboratory Tests 04/10/24 09:08 WBC 7.6 Hgb 13.3 Hct 37.8 Plt Count 279 Sodium 134 L Potassium 4.4 Chloride 98 Carbon Dioxide 26 BUN 9 Creatinine 0.69 Assessment and Plan Assessment Anesthesia Assessment: Chart Reviewed Final Anesthetic Review Family History of Problems with Anesthesia: No History of Problems with Anesthesia: No Documented by User: Jossy Husain MD 04/18/24 09:11 [facility] Past Medical History Medical History (Updated 04/10/24 @ 09:08 by Denise Villavicencio MD) DCIS (ductal carcinoma in situ) GERD (gastroesophageal reflux disease) Atypical ductal hyperplasia of breast Hypertension COPD (chronic obstructive pulmonary disease) Family history of breast cancer Breast calcification, left Family History Family History Sister Breast CA Surgical History Surgical History (Updated 04/18/24 @ 07:51 by Ghazal Cerna) History of lumpectomy of left breast (~03/18/24) Hx of elbow surgery Hx of hand surgery H/O colonoscopy Social History Social History (Updated 04/10/24 @ 08:25 by Jovi Pinon) Household Members: Family Patient Tobacco Use Status: Former Tobacco user Tobacco use type: Cigarette Years Smoked: 27 Smoked in Last 30 Days: No Use of substances other than those prescribed or required for medical reasons: Yes Substance Use Type: Marijuana Substance Use Frequency: Daily Are you DNR?: No Advance Directives: No Advance Directives Information Provided: Yes service: No Current occupational status: disabled Meds Allergies Allergy/AdvReac Type Severity Reaction Status Date / Time santos flavor [SANTOS FLAVOR] Allergy Intermediate HIVES Verified 04/18/24 07:47 Home Medications ?Medication ?Instructions ?Recorded ?Confirmed ?Last Taken ?Type acetaminophen 500 mg tablet 500 mg PO Q4H PRN Pain 11/21/23 04/18/24 Unknown History albuterol sulfate 90 mcg/actuation 2 puff inhalation QID PRN wheezing 11/21/23 04/18/24 03/18/24 07:45 History aerosol inhaler (Ventolin HFA) esomeprazole magnesium 40 mg 40 mg PO DAILY 11/21/23 04/18/24 Unknown History capsule,delayed release hydrochlorothiazide 25 mg tablet 25 mg PO DAILY 11/21/23 04/18/24 04/17/24 History hydroxyzine HCl 25 mg tablet 25 mg PO TID PRN itch 11/21/23 04/18/24 Unknown History lisinopril 10 mg tablet 10 mg PO DAILY 11/21/23 04/18/24 04/17/24 History loratadine 10 mg tablet 10 mg PO DAILY 11/21/23 04/18/24 Unknown History meclizine 25 mg tablet 25 mg PO DAILY PRN Dizziness Or 11/21/23 04/18/24 Unknown History Vertigo Exam Airway Mallampati Class: III TM Dist: >3cm Neck ROM: Full Assessment and Plan Assessment Anesthesia Assessment: Anesthesia Plan Discussed Final Anesthetic Review NPO: Yes ASA Class: III Final Preanesthetic Review: No Changes in Pt Med Stat, Meds/Allgs Chart Reviewed, Consent Obtained/Reviewed and Anes Risks/Benef Reviewed Patient Risk: Intermediate Procedure Risk: Low Anesthetic Plan Anesthetic Plan: TIVA Disposition: Standard PACU
[2024-04-18] VITALS (15 sets, daily range): BP systolic 121–151; BP diastolic 75–93; PULSE 72–85; RESP 12–18; TEMP 36.1–36.7; O2SAT 93–98; BMI 34.1
--- NOTE | 2024-04-18 08:21 | MHC.SHP ---
Pre-Procedural Eval Section A - 24 Hr Update-Section A only Date of Service: 04/18/24 The patient is an INPATIENT: No Changes since office visit: No Cold of Flu in the past 2 weeks, No New Medical Problems, No Changes in Medication and No Patient answered all questions The patient has been examined within 24 hours of the surgical procedure. The History & Physical has been completed within 30 days and I have reviewed it.: Yes Section B - Complete if H&P > 30 days Chief Complaint: Intraductal carcinoma in situ of unspecified breas Allergies: Allergies Allergy/AdvReac Type Severity Reaction Status Date / Time mckenzie flavor [MCKENZIE FLAVOR] Allergy Intermediate HIVES Verified 04/18/24 07:47 Plan I have reviewed the history and physical and performed a pertinent physical examination on my patient. No changes have occurred unless specified. Time Spent With Patient Time: Total time managing care of this patient today ____ minutes.
[2024-04-18] MEDS: Lactated Ringers 1,000 ML 100 ML IVCONT (08:24)
--- NOTE | 2024-04-18 10:13 | W.PM.OPN ---
Operative Note Operative Note Date of Service: 04/18/24 Narrative: Preop diagnosis: DCIS, left breast Postop diagnosis: DCIS, left breast, with close margins on recent excision Procedure: Re-excision for wider margins, left breast for DCIS Surgeon: Jonathan Sesay MD banking assistant: PAWEL Chowdhury The patient is a 63 year female was initially undergone lumpectomy for atypical ductal hyperplasia of the breast last month. Her path report had shown DCIS and the margins were negative but within microns on the inferior, lateral and anterior areas. I had recommended re-excision for wider margins. She understood the technique of the planned procedure as well as the risks, benefits, and alternatives She was brought to the operating room and placed supine under general anesthesia via laryngeal mask airway. The left breast was prepped and draped in the usual sterile fashion. A surgical time-out was done. The patient received cefazolin 2 g IV preoperatively I infiltrated the planned line of incision which was on the recent excision site. I used a blade 15 to make the incision and this was carried down through the full-thickness of the skin using electrocautery. I then used the curved Hernandez scissors to excise this tissue surrounding the old excision site by following the area of the scar. This was done circumferentially until this entire area was excised and this was sent as a specimen. I marked the superior and lateral margins There was note of some scarring in the inferior margin so I used the Hernandez scissors to re-excise wider margins inferiorly and this was sent as a separate specimen I observed for hemostasis. I used electrocautery to achieve hemostasis oozing areas. I copiously irrigated. Once hemostasis was confirmed, I reapposed deep breast tissue with Polysorb 3-0 interrupted sutures. Skin closure was achieved with Polysorb 4-0 subcuticular running sutures. Steri-Strips and dressings were applied. The incision was infiltrated with Marcaine 0.5% for postop analgesia. The procedure was then completed The patient tolerated the procedure well. There were no immediate complications. Initial and final counts of sponges and instruments were correct. Estimated blood loss about 25 cc. The patient was extubated without difficulty and transferred to the recovery room with stable vital signs.
[2024-04-18] MEDS: fentaNYL citrate/PF 100 MCG/2 ML VIAL 50 MCG IVPUSH ×3 (10:27→10:53)
== END 2024-04-18 11:34 | disposition home or self-care (01) ==
PROVIDERS: PCP Student in an Organized Health Care Education/Training Program; Visit Provider Surgery
PROC: (CPT 19120; principal; 2024-04-18 09:30)
DX: D05.12 Intraductal carcinoma in situ of left breast (principal); I10 Essential (primary) hypertension; J44.9 Chronic obstructive pulmonary disease, unspecified
CPT/HCPCS: 19301; 88307; J0690; J1100; J2250; J2405; J2704; J2795; J3010

== ENCOUNTER → 2024-04-18 07:29 | Outpatient (BNV) | payer MEDICARE, MEDICAID, SELFPAY | PROVIDERS: PCP Student in an Organized Health Care Education/Training Program; Visit Provider Surgery | DX: D05.12 Intraductal carcinoma in situ of left breast (principal) | CPT/HCPCS: 19301 ==

== ENCOUNTER 2024-05-05 10:37 | Outpatient (AMB) | payer MEDICARE, MEDICAID, SELFPAY ==
--- NOTE | 2024-05-05 10:38 | A.OFFVIS_ITS ---
Vital Signs 05/05/24 10:44 Height 5 ft 3 in Weight 191 lb 5.78 oz BMI 33.9 Intake Visit Reasons: S/p exc breast lump Intake Note: This patient presents for a post-op follow-up assessment status post Re-excision for wider margins, left breast for DCIS. Patient c/o; reports no redness, reports no fever or chills. 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 She is doing well postoperatively. She denies any significant complaints except for some occasional sharp pains on the left breast PFSH Medical History DCIS (ductal carcinoma in situ) GERD (gastroesophageal reflux disease) Atypical ductal hyperplasia of breast Hypertension COPD (chronic obstructive pulmonary disease) Family history of breast cancer Breast calcification, left Surgical History Hx of surgical procedure (~04/18/24) History of lumpectomy of left breast (~03/18/24) Hx of elbow surgery Hx of hand surgery H/O colonoscopy Family History Sister Breast CA Social History Household Members: Family Patient Tobacco Use Status: Former Tobacco user Tobacco use type: Cigarette Years Smoked: 27 Substance Use Type: Marijuana service: No Current occupational status: disabled Female Reproductive History Menstrual Age of Menarche: 15 Review of Systems Const Denies chills and Denies fever(s) Card Denies chest pain, Denies dyspnea and Denies dyspnea on exertion Resp Denies cough, Denies dyspnea and Denies dyspnea on exertion GI Denies hematochezia and Denies change in bowel habits Denies hematuria Musc Denies back pain and Denies limited range of motion Neuro Denies focal weakness and Denies convulsions Psych Denies depression and Denies mood swings Physical Exam Vital Signs: BMI result Body Mass Index 33.9 Const General: comfortable and no acute distress Chest Other: Left breast excision site is well healed, some mild surrounding redness, no discharge or signs of infection Resp Effort & Inspection: normal respiratory effort Cardio Rate: regular rate Assessment & Plan Assessment & Plan (1) DCIS (ductal carcinoma in situ): Code(s): D05.10 - Intraductal carcinoma in situ of unspecified breast Category: Medical Plan: Status post re-excision. She is doing well postoperatively. Her incision is well healing. However, her path report shows that the DCIS is 0.5 mm from the medial margin, and 1 mm from the anterior margin. I explained to her that the ideal margin for DCIS would be 2 mm. Current literature does state that in patients undergoing Jeferson treatment, re-excision offers no benefit in the 10 year local/ regional recurrence rate. I did explain to her the option of proceeding with re-excision for wider margins or mastectomy. She understands that she undergoes mastectomy, she may not need radiation treatment. She says she is uncertain as to which direction she is going. I will see her in the office in about 2-3 weeks and rediscuss her options. Her sister was with her during the visit. Coding Level of Care Code Global (08582) Diagnoses DCIS (ductal carcinoma in situ) D05.10
[2024-05-05 10:44] VITALS: BMI 33.9
== END 2024-05-05 11:09 | disposition home or self-care (01) ==
PROVIDERS: PCP Student in an Organized Health Care Education/Training Program; Visit Provider Surgery
DX: D05.10 Intraductal carcinoma in situ of unspecified breast (principal)
CPT/HCPCS: 99024

== ENCOUNTER → 2024-05-05 10:37 | Outpatient (BNVA) | payer MEDICARE, MEDICAID, SELFPAY | PROVIDERS: PCP Student in an Organized Health Care Education/Training Program; Visit Provider Surgery | DX: Z48.3 Aftercare following surgery for neoplasm (principal); D05.10 Intraductal carcinoma in situ of unspecified breast | CPT/HCPCS: 99212 ==

== ENCOUNTER 2024-05-20 11:08 | Outpatient (REF) | payer MEDICARE, MEDICAID, SELFPAY ==
--- NOTE | ~2024-05-20 | MM_ITS ---
EXAMINATION: BONE DENSITOMETRY CLINICAL INDICATION: Osteopenia. COMPARISON: This is the patient's baseline examination. TECHNIQUE: Using a [employer] DXA System (software version: 13.1) manufactured by [employer], dual-energy x-ray absorptiometry was performed of the lumbar spine and left hip. The images are of good technical quality. Summary results are attached. FINDINGS: LEFT FEMUR, NECK: BMD 0.728 g/cm2, Z-score -1.2, T-score -2.2, osteopenia. LEFT FEMUR, TOTAL: BMD 0.845 g/cm2, Z-score -0.6, T-score -1.3, osteopenia. AP SPINE L1-L4: BMD 0.865 g/cm2, Z-score -1.8, T-score -2.6, osteoporosis. IDENTIFIED RISK FACTORS: Osteoporosis, current smoker, low calcium intake, parental hip fracture, menopause. HISTORY OF FRACTURE: None listed. MEDICATIONS: Vitamin D. MM/XR DEXA axial skeleton IMPRESSION: 1. DIAGNOSIS: Osteoporosis based on the lowest T-score value of -2.6 in the lumbar spine applying World Health Organization criteria. 2. 10-YEAR FRACTURE RISK PREDICTION, FRAX: According to the guidelines, FRAX calculation should only be performed on patients in the osteopenia bone density category. Therefore, FRAX was not performed on this patient. 3. Treatment Recommendations: NOF guidelines recommend consideration for treatment in postmenopausal women and men age 50 and older presenting with the following: -A hip or vertebral (clinical or morphometric) fracture. -T-score less than or equal to -2.5 at the femoral neck or spine after appropriate evaluation to exclude secondary causes. -Low bone mass at the hip or spine and a 10-year fracture probability by FRAX of greater than or equal to 3% for hip fracture or greater than or equal to 20% for major osteoporotic fracture based on the [place] adapted WHO algorithm. 4. Other Recommendations: All treatment decisions require clinical judgment and consideration of individual patient factors, including patient preferences, comorbidities, previous drug use, risk factors not captured in the FRAX model (e.g. frailty, falls, vitamin D deficiency, increased bone turnover, interval significant decline in bone density) and possible under or overestimation of fracture risk by FRAX. Additional medical evaluation for secondary cause of low bone mineral density may be appropriate. FUTURE SCAN RECOMMENDATION: People with diagnosed cases of osteoporosis or at high risk for fracture should have regular bone mineral density tests. For patients eligible for Medicare, routine testing is allowed once every 2 years. The testing frequency can be increased to one year for patients who have rapidly progressing disease, those who are receiving or discontinuing medical therapy to restore bone mass, or have additional risk factors.
== END 2024-05-20 11:09 | disposition home or self-care (01) ==
LOC: HO.MAMMO 11:08
PROVIDERS: PCP Student in an Organized Health Care Education/Training Program; Visit Provider Internal Medicine Medical Oncology
DX: Z13.820 Encounter for screening for osteoporosis (principal); M85.80 Other specified disorders of bone density and structure, unspecified site; M85.9 Disorder of bone density and structure, unspecified; Z78.0 Asymptomatic menopausal state
CPT/HCPCS: 77080

== ENCOUNTER 2024-05-21 10:47 | Outpatient (AMB) | payer MEDICARE, MEDICAID, SELFPAY ==
--- NOTE | 2024-05-21 10:53 | A.OFFVIS_ITS ---
Vital Signs 05/21/24 10:58 Height 5 ft 3 in Weight 191 lb 5.78 oz BMI 33.9 Intake Visit Reasons: 3 week follow up s/p exc breast lump Intake Note: This patient presents for a three week follow-up status post Re-excision for wider margins, left breast for DCIS. Pt c/o; reports pain. 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 She denies any new complaints. She does admit to some pain and redness on the area of the incision on the left breast. She also says that she is going to have right wrist surgery next week. REPLACED BY [facility] Medical History DCIS (ductal carcinoma in situ) GERD (gastroesophageal reflux disease) Atypical ductal hyperplasia of breast Hypertension COPD (chronic obstructive pulmonary disease) Family history of breast cancer Breast calcification, left Surgical History Hx of surgical procedure (~04/18/24) History of lumpectomy of left breast (~03/18/24) Hx of elbow surgery Hx of hand surgery H/O colonoscopy Family History Sister Breast CA Social History Household Members: Family Patient Tobacco Use Status: Former Tobacco user Tobacco use type: Cigarette Years Smoked: 27 Substance Use Type: Marijuana service: No Current occupational status: disabled Female Reproductive History Menstrual Age of Menarche: 15 Review of Systems Const Denies chills and Denies fever(s) Card Denies chest pain, Denies dyspnea and Denies dyspnea on exertion Resp Denies cough, Denies dyspnea and Denies dyspnea on exertion GI Denies hematochezia and Denies change in bowel habits Denies hematuria Musc Details: Right wrist pain, chronic Denies back pain and Denies limited range of motion Neuro Denies focal weakness and Denies convulsions Psych Denies depression and Denies mood swings Physical Exam Vital Signs: BMI result Body Mass Index 33.9 Const General: comfortable and no acute distress Chest Other: Left Lumpectomy site with some redness, mild tenderness GI Palpation (GI): Soft to palpation Assessment & Plan Assessment & Plan (1) DCIS (ductal carcinoma in situ): Code(s): D05.10 - Intraductal carcinoma in situ of unspecified breast Category: Medical Plan: Status post lumpectomy with very close margins. She still has not decided whether she will proceed with wider excision or radiation only or with mastectomy. She says she wants to go ahead with her right wrist surgery for chronic pain removal hardware in [place] next week. She does not want to decide yet with regards to the left breast until after the surgery. I reviewed with her her options again. I will see her again in the office after her wrist surgery. Her sister was with her during the visit. Coding Level of Care Code Global (42107) Diagnoses DCIS (ductal carcinoma in situ) D05.10
[2024-05-21 10:58] VITALS: BMI 33.9
== END 2024-05-21 11:27 | disposition home or self-care (01) ==
PROVIDERS: PCP Student in an Organized Health Care Education/Training Program; Visit Provider Surgery
DX: D05.10 Intraductal carcinoma in situ of unspecified breast (principal)
CPT/HCPCS: 99024

== ENCOUNTER → 2024-05-21 10:47 | Outpatient (BNVA) | payer MEDICARE, MEDICAID, SELFPAY | PROVIDERS: PCP Student in an Organized Health Care Education/Training Program; Visit Provider Surgery | DX: D05.12 Intraductal carcinoma in situ of left breast (principal); Z98.890 Other specified postprocedural states | CPT/HCPCS: 99212 ==